=== PATIENT | female | born 1950 | race Caucasian/White ===

== ENCOUNTER 2024-08-04 12:28 | Outpatient (OUT) | payer MEDICARE, SELFPAY ==
--- NOTE | 2024-08-04 12:38 | ECG_ITS ---
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
--- NOTE | 2024-08-04 13:05 | PM.PRESUREVA ---
History of Present Illness History of Present Illness Chief complaint: LEFT EAR FOREIGN BODY, RIGHT ETD Narrative: Patient presents for presurgical testing accompanied by her . Please see HPI from Dr. Valdez dated July 27, 2024. Review of Systems ROS Narrative REVIEW OF SYSTEMS: Negative except as stated in HPI, ten or more systems reviewed. Constitutional: No fever, chills, weakness ENT: No sore throat or epistaxis Cardiovascular: No edema, chest pain, palpitations, or activity intolerance Respiratory: No shortness of breath, cough, or wheezing Musculoskeletal: No joint pain or swelling Gastrointestinal: No abdominal pain, constipation, diarrhea, or vomiting Genitourinary: No dysuria or hematuria Neurological: No numbness, tingling, weakness, or headache Psychiatric: No mood changes PFSH PFSH Medical History (Updated 08/04/24 @ 12:43 by Esthela Dunham NP) Paresthesia of left upper limb ?R20.2 - Paresthesia of skin (ICD-10) Hyperlipidemia ?E78.5 - Hyperlipidemia, unspecified (ICD-10) Depression ?F32.A - Depression, unspecified (ICD-10) Hearing loss ?H91.90 - Unspecified hearing loss, unspecified ear (ICD-10) Foreign body in left ear ?T16.2XXA - Foreign body in left ear, initial encounter (ICD-10) Eustachian tube dysfunction ?H69.90 - Unspecified Eustachian tube disorder, unspecified ear (ICD-10) Surgical History (Updated 08/04/24 @ 12:53 by Esthela Dunham NP) History of colonoscopy ?Z98.890 - Other specified postprocedural states (ICD-10) History of tubal ligation ?Z98.51 - Tubal ligation status (ICD-10) H/O ovarian cystectomy ?Z98.890 - Other specified postprocedural states (ICD-10) ?Z87.42 - Personal history of other diseases of the female genital tract (ICD-10) Family History (Updated 08/04/24 @ 12:53 by Esthela Dunham NP) Other Family history of Alzheimer's disease Family history of colon cancer Family history of ovarian cancer Social History (Updated 08/04/24 @ 12:49 by Esthela Dunham NP) Within the past year, how often did you have a drink containing alcohol: 4 or more times a week Within the past year, how many standard drinks containing alcohol did you have on a typical day: 1 or 2 Total score: 0 Score interpretation: A score less than 3 is consistent with normal alcohol consumption. Smoking status: Never smoker Non-prescribed substance use: denies use Highest level of school completed/degree received: high school graduate Meds Home Medications and Allergies Home Medications ?Medication ?Instructions ?Recorded ?Confirmed ?Type escitalopram oxalate 10 mg tablet 10 mg PO DAILY 08/04/24 08/04/24 History multivitamin (Daily Multi-Vitamin 1 tab PO DAILY 08/04/24 08/04/24 History tablet) Allergies Allergy/AdvReac Type Severity Reaction Status Date / Time No Known Drug Allergies Allergy Verified 08/04/24 12:46 Exam Narrative Exam Narrative: Constitutional: Awake, alert, comfortable, well-appearing, nontoxic, interactive, vital signs as charted Head: Normocephalic, atraumatic Neck: Supple, normal appearance, normal range of motion, no meningeal signs, no lymphadenopathy Respiratory: No respiratory distress, breath sounds clear Cardiovascular: Regular rate and rhythm, strong and regular heart tones Musculoskeletal: Normal gait, no swelling or edema Skin: No rashes or induration, no lesions, only visible skin inspected Neuro: No neurological deficits, normal sensation Psychiatric: Oriented ?3, normal affect Assessment and Plan Assessment and Plan (1) Eustachian tube dysfunction: (2) Foreign body in left ear: Plan Right myringotomy and insertion of ventilation tube, T-tube, removal of foreign body left ear scheduled with Dr. Valdez August 12, 2024.
[2024-08-04 13:19] LABS: Basophils Absolute Auto 0.1 10^3/uL (0.0-0.1); Eosinophils Absolute Auto 0.3 10^3/uL (0.0-0.7); Eosinophils Percent Auto 5.4 % (0.9-7.0); Hematocrit 36.7 % (36.0-48.0); Hemoglobin 12.6 g/dL (12.0-16.0); Immature Granulocytes Abs Auto 0.01 10^3/uL (0.00-0.03); Immature Granulocytes Pct Auto 0.2 % (0.0-0.5); Lymphocytes Absolute Auto 1.5 10^3/uL (1.2-3.8); Lymphocytes Percent Auto 25.8 % (20.5-60.0); Mean Corpuscular HGB Conc 34.3 g/dL (29.9-35.2); Mean Corpuscular Hemoglobin 32.9 pg (26.7-34.0); Mean Corpuscular Volume 95.8 fL (81.0-99.0); Mean Platelet Volume 10.5 fL (9.5-13.5); Monocytes Absolute Auto 0.6 10^3/uL (0.3-0.8); Monocytes Percent Auto 9.4 % (1.7-12.0); Neutrophils Absolute Auto 3.5 10^3/uL (1.4-6.5); Neutrophils Percent Auto 58.2 % (43.0-75.0); Platelet Count 212 10^3/uL (150-450); Red Blood Count 3.83 10^6/uL (4.20-5.40); Red Cell Distribution Width 12.6 % (11.0-15.0); White Blood Count 5.9 10^3/uL (4.0-11.0)
== END 2024-08-04 12:29 | disposition home or self-care (01) ==
LOC: PST 12:32
PROVIDERS: Visit Provider Otolaryngology
DX: Z01.810 Encounter for preprocedural cardiovascular examination (principal); Z01.812 Encounter for preprocedural laboratory examination; Z01.818 Encounter for other preprocedural examination; H69.91 Unspecified Eustachian tube disorder, right ear; T16.2XXA Foreign body in left ear, initial encounter
CPT/HCPCS: 85025; 93005; G0463

== ENCOUNTER 2024-08-12 07:54 | Day surgery (SDC) | payer MEDICARE, SELFPAY ==
[2024-08-04 13:02] VITALS: BP 145/79; PULSE 70; TEMP 36.2; O2SAT 98; BMI 18.9
[2024-08-12] VITALS (12 sets, daily range): BP systolic 109–155; BP diastolic 52–93; PULSE 60–79; TEMP 36.2–36.3; O2SAT 96–99; BMI 19.0
--- NOTE | 2024-08-12 | OP_ITS ---
OPERATION DATE: 08/12/2024 PREOPERATIVE DIAGNOSIS: Bilateral mixed hearing loss, left ear foreign body and left tympanic membrane perforation. POSTOPERATIVE DIAGNOSIS: Bilateral mixed hearing loss, left ear foreign body and left tympanic membrane perforation. PROCEDURE: Right myringotomy and tube and removal of left ear foreign body. ANESTHESIA: General LMA. COMPLICATIONS: None. FINDINGS: Thick right myringosclerosis. No middle ear effusion evident. Left inferior 60% tympanic membrane perforation and large posterior tympanic membrane and external auditory canal crust. INDICATIONS: This 73-year-old woman presented with severe bilateral mixed hearing loss and bilateral myringosclerosis, resulting in a perforation on the left. She had persistent large crust and apparent right middle ear effusion, based upon examination and a flat tympanogram. PROCEDURE: Patient identified in the holding area and taken back to the OR area where she was placed in the supine position. After induction of general anesthesia, the left ear was approached with the otomicroscope and a pick used to carefully tease crust away from the posterior tympanic membrane the posterior external auditory canal. It was then removed with an alligator forcep. Attention was then turned to the right ear. Again, the crust was teased away from the tympanic membrane. The external canal was then prepped with alcohol, which was then suctioned. An anterior radial myringotomy was performed, and the above findings noted. A modified Bonilla T-tube could not be successfully inserted into the myringotomy and opened in the middle ear. Therefore, an Tillman tympanostomy tube was inserted. Ciprodex drops were then infused and the patient was awakened and taken to the recovery room in good condition. OLGA
--- OUTSIDE RECORDS SUMMARY | 2024-08-12 07:58 | XMS_ITS | CCD ---
Author Organization [facility] Team Providers Care Accounting Practice Manager Name Role Phone VandSaad cania W Primary Care Provider [phone] VANDEHEY, DANDY W Primary Care Unavailable VANDEHEY, DANDY W Attending Unavailable VANDEHEY, DANDY W Admitting Unavailable VANDEHEY, DANDY W Attending Unavailable VANDEHEY, DANDY W Referring Unavailable VANDEHEY, DANDY W Primary Care Unavailable Unavailable Primary Care Provider Unavailluke e Maribel Murry Primary Care Provider RAYNA BISHOP Attending Unavailable TIFFANIE FRAUSTO Attending Unavailable MARIBEL MCGILL Attending Unavailable TIFFANIE FRAUSTO Attending Unavailable TIFFANIE FRAUSTO Attending Unavailable TIFFANIE FRAUSTO Attending Unavailable Medications Current Medications Medication Drug Class(es) Dates Sig (Normalized) Sig (Original) amoxicillin 875 mg / clavulanate 125 mg oral tablet (7 sources) Penicillin-class Antibacterial Start: 05-05-2024 End: 05-24-2024 take 1 tablet by mouth in the morning amoxicillin-clavul anate (Augmentin) 875-125 MG tablet Indications: Right acute otitis media Take 1 tablet (875 mg) by mouth in the morning and 1 tablet (875 mg) before bedtime. Do all this for 10 days. 20 tablet 05/14/2024 05/24/2024 Active b complex vitamins capsule (2 sources) take 1 capsule by mouth once daily b complex vitamins capsule Take 1 capsule by mouth daily 0 Active escitalopram 10 mg oral tablet (20 sources) Serotonin Reuptake Inhibitor Start: 08-15-2021 take 1 tablet by mouth once daily escitalopram (LEXAPRO) 10 MG tablet Take 1 tablet by mouth daily 90 tablet 3 08/21/2022 Active Start: 08-20-2018 escitalopram ( LEXAPRO) 10 MG tablet 1/2 tab daily for the first 6 days, then increase to 1 pills daily 90 tablet 3 08/20/2018 Active fluticasone propionate 0.05 mg/actuat metered dose nasal spray (17 sources) Corticosteroid Start: 05-14-2024 End: 05-14-2025 take 2 spray(s) nasal route once daily fluticasone (Flonase) 50 MCG/ACT nasal spray Indications: Right acute otitis media Administer 2 sprays into each nostril Daily Shake gently. Before first use, prime pump. After use, clean tip and replace cap. 48 g 3 05/14/2024 05/14/2025 Active ketoconazole 20 mg/ml topical cream (1 source) Azole Antifungal Start: 08-04-2018 ketoconazole (NIZORAL) 2 % cream apply to affected area twice a day for 14 DAYS 0 08/04/2018 Active Multiple Vitamins-Minerals (Multivitamin Adults 50+) tablet (17 sources) take 1 tablet by mouth once daily Multiple Vitamins-Minerals (Multivitamin Adults 50+) tablet Take 1 tablet by mouth Daily Active ofloxacin 3 mg/ml otic solution (8 sources) Quinolone Antimicrobial Start: 06-08-2024 End: 06-13-2024 ofloxacin (Floxin) 0.3 % otic solution Indications: Foreign body of left ear, initial encounter Administer 4 drops into the left ear in the morning and 4 drops before bedtime. Do all this for 5 days. 10 mL 06/08/2024 06/13/2024 Active Start: 05-05-2024 End: 05-14-2024 ofloxacin (Floxin) 0.3 % shabbir c solution Indications: Non- recurrent acute suppurative otitis media of right ear with spontaneous rupture of tympanic membrane Administer 10 drops into the right ear Daily for 7 days 5 mL 05/05/2024 05/14/2024 Discontinued (Therapy completed) triamcinolone acetonide 1 mg/ml topical cream (1 source) Corticosteroid Start: 04-10-2018 triamcinolone (KENALOG) 0.1 % cream Apply topically 2 times daily 80 g 1 04/10/2018 Active Completed/Discontinued Medications Medication Drug Class(es) Dates Sig (Normalized) Sig (Original) ciprofloxacin 3 mg/ml / dexamethasone 1 mg/ml otic suspension (2 sources) Corticosteroid, Quinolone Antimicrobial Start: 05-14-2024 End: 05-21-2024 ciprofloxacin-de xAMETHasone (CiproDEX) otic suspension Indications: Chronic otorrhea of left ear Administer 4 drops into the left ear in the morning and 4 drops before bedtime. Do all this for 7 days. 7.5 mL 05/14/2024 05/21/2024 predniSONE 20 mg oral tablet (2 sources) Start: 05-14-2024 End: 05-20-2024 take 1 tablet by mouth in the morning predniSONE (Deltasone) 20 MG tablet Indications: Right acute otitis media Take 1 tablet (20 mg) by mouth in the morning and 1 tablet (20 mg) before bedtime. Do all this for 6 days. 12 tablet 05/14/2024 05/20/2024 Problems Active Problems Problem Classification Problem Date Documented Date Episodic/Chronic Chronic obstructive pulmonary disease and bronchiectasis (2 sources) Bronchitis; Translations: [Bronchitis, not specified as acute or chronic] 05-05-2024 Episodic Disorders of lipid metabolism (20 sources) Mixed hyperlipidemia; Translations: [Mixed hyperlipidemia] Onset: 08-05-2016 08-05-2016 Chronic Mood disorders (20 sources) Moderate major depression, single episode; Translations: [Major depressive disorder, single episode, moderate] Onset: 08-15-2021 08-15-2021 Chronic Other ear and sense organ disorders (2 sources) Bilateral hearing loss; Translations: [Unspecified hearing loss, bilateral] 05-14-2024 Chronic Other ear and sense organ disorders (4 sources) Mixed conductive and sensorineural hearing loss, bilateral; Translations: [Mixed conductive and sensorineural hearing loss, bilateral] 07-23-2024 Chronic Other ear and sense organ disorders (2 sources) Otorrhea; Translations: [Otorrhea, left ear] 05-14-2024 Episodic Other injuries and conditions due to external causes (6 sources) Foreign body in left ear; Translations: [Foreign body in left ear, initial encounter] 06-08-2024 Episodic Other screening for suspected conditions (not mental disorders or infectious disease) (3 sources) Patient encounter status; Translations: [Encounter for screening mammogram for malignant neoplasm of breast] Onset: 11-03-2023 Episodic Otitis media and related conditions (20 sources) Acute suppurative otitis media with spontaneous rupture of ear drum; Translations: [Acute suppurative otitis media with spontaneous rupture of ear drum, right ear] 05-07-2024 Episodic Past or Other Problems Problem Classification Problem Date Documented Da te Episodic/Chronic Other ear and sense organ disorders (2 sources) Otalgia; Translations: [Otalgia, unspecified ear] Onset: 05-09-2013 Resolved: 05-21-2013 05-21-2013 Episodic Other ear and sense organ disorders (1 source) Pain of ear structure; Translations: [Otalgia, unspecified ear] Onset: 05-09-2013 Resolved: 05-21-2013 05-21-2013 Episodic Other nervous system disorders (20 sources) Paresthesia of skin; Translations: [Paresthesia of left upper limb] Onset: 05-21-2013 05-21-2013 Episodic Results Test Name Value Interpretation Reference Range Facility ALL CBC WITH AUTO DIFFon BASOPHILS ABSOLUTE AUTO 0.1 [facility] Basophils/100 WBC (Bld) 1 % 0.2 - 2.0 % [facility] Eosinophils/100 WBC (Bld) 5.4 % 0.9 - 7.0 % [facility] Erythrocyte distribution width (RBC) [Ratio] 12.6 % 11.0 - 15.0 % [facility] Hematocrit (Bld) [Volume fraction] 36.7 % 36.0 - 48.0 % [facility] ([facility] [Mass/Vol] 12.6 g/dL 12.0 - 16.0 g/dL [facility] IMMATURE GRANULOCYTES ABS AUTO 0.01 [facility] Immature granulocytes/100 WBC (Bld) 0.2 % 0.0 - 0.5 % [facility] Interpretation and review of laboratory results Abnormal [facility] LYMPHOCYTES ABSOLUTE AUTO 1.5 [facility] Lymphocytes/100 WBC (Bld) 25.8 % 20.5 - 60.0 % [facility] MCH (RBC) [Entitic mass] 32.9 pg 26.7 - 34.0 pg [facility] MCHC (RBC) [Mass/Vol] 34.3 g/dL 29.9 - 35.2 g/dL [facility] MCV (RBC) [Entitic vol] 95.8 fL 81.0 - 99.0 fL [facility] MONOCYTES ABSOLUTE AUTO 0.6 [facility] Monocytes/100 WBC (Bld) 9.4 % 1.7 - 12.0 % [facility] NEUTROPHILS ABSOLUTE AUTO 3.5 [facility] Neutrophils/100 WBC (Bld) 58.2 % 43.0 - 75.0 % [facility] Platelet mean volume (Bld) [Entitic vol] 10.5 fL 9.5 - 13.5 fL [facility] # [facility]T 212 [facility] RBC 3.83 Low [facility] WBC 5.9 [facility] ECG 12-LEADon 08-04-[address] [address] Electrocardiograph Report Signed Patient: CHIQUI WEINBERG MR#: [id number] : 1950 Acct:[id number] Age/Sex: 73 / F ADM Date: 08/04/24 Loc: PST Attending Dr: Tiffanie Frausto M.D. Ordering Physician: Tiffanie Frausto M.D. 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 Signed By: 08/04/242110 DD/ 1302 TD/TT: Financial Systems Administrator: [facility] Radiology, Radiologist, - 08/04/2024 [facility] [address] [place] [address] Electrocardiograph Report Signed Patient: CHIQUI WEINBERG MR#: [id number] : 1950 Acct:[id number] Age/Sex: 73 / F ADM Date: 08/04/24 Loc: PST Attending Dr: Tiffanie Frausto M.D. Ordering Physician: Tiffanie Frausto M.D. 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 Signed By: 08/04/242110 DD/ 1302 TD/TT: Financial Systems Administrator: [facility] [employer] Radiology Study observation (narrative) [facility] ECG 12-LEADOrdered By: Radio logist Radiology on 08-04-2024 [employer] Work Phone: No Panel Informationon 07-23 [employer] Audio indicated a moderate to profound mixed hearing loss, bilaterally. [employer] [facility] FUENTES DIGITAL SCREEN BILA TERALosusanne 11-03-2023 [facility] FUENTES DIGITAL SCREEN BILATERAL EXAMINATION: SCREENING DIGITAL BILATERAL MAMMOGRAM WITH TOMOSYNTHESIS, 11/03/2023 TECHNIQUE: Screening mammography was performed with tomosynthesis including MLO and CC views of the bilateral breasts. Computer aided detection was used for the interpretation of this exam. COMPARISON: October 24, 2022 and October 23, 2021 HISTORY: Screening. FINDINGS: The breasts are heterogeneously dense which can obscure small masses. There is no dominant mass architectural distortion or concerning grouping of microcalcification in either breast. IMPRESSION: No mammographic evidence of malignancy BIRADS: BIRADS - CATEGORY 1 Negative. Normal interval follow-up is recommended in 12 months. OVERALL ASSESSMENT - NEGATIVE A letter of notification will be sent to the patient regarding the results. [employer] recommends annual mammograms for women 40 years and older. Interpreted by: Alan Luna DO Signed by: Alan Luna DO 11/03/23 Final result Normal [facility] Coding Summaryon 08-18-2023 Coding Summary HTMLBase 64 JazlehezRNa1dCb+PGh lYWQ+CJ6FMICdO57yiZ BhdV3hS2GATZpDZiakM VZIUEnCMnBqpmFdGE3j aXNjZXJu IC8+NX2sFNAvSwcghXJ nr6R6mAN4M31dwj8vOY svvGD4CFUaOkSibknza 8szeOp0DVazQzjdWcTg QOBtxA97IOP4gY72Am2 5dESzbLYtl5jsgXe9Xm DbHSTzJNX6nRwnNLtuy 5EnGMPaE38tzZZco0I9 IGNvbGxhcHNlOyBlbXB 1vB5jEUaabyevj3bzbh vgHwh8hf71bZJou0X7a AD6B3PnhfF6ZYHvdNUq LfgxgBYJhU5mibfqp1h kzzdrAjTwEHEjUEb2JI q0WQJirJxpBrVfBZ27E IG4QJIcykDzE5XjLNFf mBxcTxR9a2H2Uw2DV7X TOijxF3MIOKRQCHjzfL Q+IN00ow55S5JvKfotR yk9VOOzZVF6yED3nW4q QSAkNJnsu4S9vUW5H6F nnoYrmg9rl0fmPAQcZV nyH21zyILrt8J9ERAzw UW9WGStfAflNtInrG67 Oyc+SFSlvCvff0UsYbc jp2suo7nxmQp3LtctAT FsvwKnaYetVYN7y7LbQ t6jQNHtmDB6nPS1lZ5m OmLrHxH8RCwxD107VkN ooWHxAhirI20gP4KxtP A+CZMgUgv5HVCgeGuiI Q0yU3IbPRXcyxwpnYYa sPebZI2vZCWzcipaZFI ikU1zFROzP7c3QtUuNx Z0UMhjK7UiCLRsinvlG z50nJ4vJbMiDiQ5IQxn L3QzemJ2HOSbhJUzJUy sVCM4Q44ja8W8CULgXA EwUIA4sMB0gI2pgVaxc jogbGVmdDsgdmVydGlj VRatORadE725WVNtvSb nPkNvZGluZyBEYXRlOi AgMDIvMTkvMjAyNDwvd GQ+BXTfHND2wFxgPXJw qCTaMMxwRv5wrPmnyPr jWU9pSKXzucnrJLPqeP 2kOKDjcEVldSrfNK3kB ZCavllgf170ItDrTKN4 BBKyeTLuK5BigP1hObY wIVYiSXUsA8FcjZTrHX eqA753QPfmTmH7IGLfc jOlL7JnPFBysThsHxE4 i9Q4Ie7Rp8CpgodqB8E exIXwFgMeGhnhROx0D2 RkPjwvdHI+AI87ENRzY N35JTx7CZX3wHkiPYos SQStU8IxbH7gMsSuZBO kZGRkOyc+PHRhYmxlIH dpZHRoPScxMDAlJyBzd OrbQY1sBb7kZDCfKXZx lWkgrKMqLqDmw4arDYV pNLsfYM0kePdoS6DhnL Z3MOYaw3x5Wy59Z19nE 3JvdXA+SACwvVR9qHO1 gH2lPoVqEzG1KLsvJ20 8JjUxyWYmCxnxx6wqz2 sidMt8HiR2XLNufkFto QygDGK4p6MaGc82N62s IHdpZHRoPSIxNSUiIHZ eyFsmlk9luJ5bEc7+PG EfcFT1sFL6iX7dQeDgL wI4JEadP667IpQfbKEs Jliwg4qlh8kjbHe3GnE mJJHzkdIbjVqtSNZ3n9 NxSe88P2EixPhvl4LvH jt4ra19fYTda1Q2wTG4 S6JsWSRffvenhFRtvIz eNU5eEAZtmgiaJMZmbL 0kIABsP4p9DjPlPeO6K RhuH1IlhcM0UFGneMEf GSBktWGRaZ0dchlwi5d vfbzpPwLpZMBiYEe8PP s7KBFzwNqbOeKuHBX8Y lK5UYL8rCZqzM2mhVmt pceicU5rNep+BQF4aUF kcBAHHE9yHrzvgTX+PH IsGIR3gNngTAyyLRKmy P1mJIPiW3s4SmFsVvE0 TAuzM4FjasH4QDKbuIS sREOxaUQDgK6bobvjk6 rjjxnbLkWoXRIwJDf6L Rg7NYAguToaZjOwRIQ9 NtT0PYU9wUIjvH3jtYt wuurmoV0aNbc+QmlydG loBZZ1JVb0H1TbExr4N XIlhZdrLC3hvQXmLGrq Ag4xyEkthErxOT0rGHF hmnfyn499FaGxz5sfCA BojUDrEIgnFKX7H49en 3H2HNVwJUHgYAU9uGV7 eJ4omCgjznwzkLGuwFk gdmVydGljYWwtYWxpZ2 76IYMnrDcqNiFdRCq3D 9YrSxc0WATxbHjsTD8e hFGsPEwbTs2jbUmtgFo yBV1xLFQkkhfzr149Qm Fwh3toVGGqnYAaNAbsO TY2D81lm5F0VRRpBEZy XZA8zHS4vP9qdNkgiqk gbGVmdDsgdmVydGljYW sfEFgtB339XKFtxWryC aGwkZx0K6PdBfc9SDIp wThnNT6dfGFyBVykDp9 omIafhQibOK1kCCOtip ycd919KaUox2ebHDVlu XFnWXacFDM3T23op0J0 YVHyFSBdNJZ5qHL0yV9 hbGlnbjogbGVmdDsgdm YduRutIMyoBSpmC659V HRvcDsnPlBhdGllbnQg VHjcBGd9W4RkEkknqBY +BK25KUTnWF39xVWbtT Jei2uwpEg5UvOzYTHpT CB3dKsnKXzem4YhDEXl U57yrWLuz3Z3UEWyoJu hyNNjYlSwqOO8lR0qFN dzqeijr1welgiqDuhzr 2nwxm64kA89A14rYDdj ZHRoPSIzMCUiIHZhbGl mtz1stW8iQv2+PGNvbC M8qXJ6vE9wPTMkKhD9R HacC528ZwRwcQXfHmpz x6wpj3jgjCq0DqR1HMC djkKjjQfhQSA3l9DqCh 26U96sOLvxVBFiDBCfD RTmECXfmUrtin6wkS1t Ii8+JIApwKU5uTJ9bU2 uDyMpNmH4CKvwY620Pv WigFMgUtgyE55tO4Qud XA+JJLgKgc6IYRiaZge SL5flMFrKTicQp8qLVC 9YaHtBwEcVSueK7IyHD WmhimatgqfmSE5QZZwX XSctN67Lo9snSseHHWw qWVQpP2yjbpzp7cxfhm vScBzTWUrOSm0GUd6KP LfyIucEjCgTRC8SkB5O SQ4nKWphQ5qtLijbwfv oT6qZ6JbKXRpdwhgJo0 9nY2pHpNqUaM4OIyyWj c+TUNNSUxMTEVOLCBNQ ZMABYQ4S4PwMny4IEXs sVzxON3zdIPmCVdcOi6 kmXwjtRaqRK7dVILgba ikSQDweQ2dEVEbrNNyy EnoVO7fUSUctjdjt211 NlPgICT0JSTmiSNnL3B rxI1dYnUiDBRqAWDlQ5 BvrQWgMWzsM161NJflH gP8ONKokmZtC2YqURBt wShoRdE1i8V5Lm8fDQ7 zCe0pGRSxHT15PC14hP Iqk2H9mPT8O1YuQEEsz anrnsqteSC9YAJsGLNl uM16uEJcVHqeKr6jh3K 7z586AAQhOKUeaN16Ge 2vwIfpUJXqaWWEwS5jr qjqm4fvbtbpViXkXBYr JOa5GHq4PAOryGxlXfD rVGP7RnE5AGS9uKJafL 0paHsnxodznA5jGyf+N aTlXDWtpwV9G2UwQoa7 HLNraKacSL7fgURjHYg cDu2ceUpmcQlgIY5gCR BloqxwMYBowM8bZUHbt DWmxJmtMT3iLLFjhccd l148KmGdJFE6HLGhrAI vR3WvbB6xPaYtKADgAE OcY8EsuDTrAAspG575E HhnReO8APJzrsIaU3Jh GKJmvEmaKqR3t9X6Wz1 MTW2RMAJ6Q9DmUlv6UD DrsOhhNB7zbSOzJIdnV g7diFujdDsyMY9yNRHl xapfAADslE8gTEXwmBR ewEuhKF2rVJNbjauar0 84RiAmPGV7CAYzfJSmE 8TcgK0nZxMnVNXkULHq F1GxaXQkJAtlK685NSx kUcK1ZSPxahBkO1XhPC XpyYdrUkH0w3A5Mz0LT DwvdGQ+JS86tw45R5Qf NvrpTva2BTEzNBZ8bOO 7tS6bBOHuUYqyu3F4wR U1Z5JhmjUtjx4sm7bhX YBqPYyeJ34gyLPow2G2 CFDpvQF7TURqwDsnDvJ tmD75Tog+PGNvbGdyb3 RrGyqvr9poi1kggFf7Z jMwJSIgdmFsaWduPSJ0 q5NiVz73S51zYGvuRHK oPSIzMCUiIHZhbGlnbj 8ahP2zQn6+KGQcxIW2c EN5wN6gLuOgXaP1VDjj N460WrQefQNbFwprt2t hf8yrmSo8WfRjPCAiwq CwdLhdPWQ4a8EiYk98C 8JcgAeaw1WbTnf7zw21 hDBap5T9dDR4I9CsTFR lcrbesGZtpDyeHV9tAW HiuqviRMZgoJ6oKVJaK 2r6PxSpUwV6SFdpG4Oy mxT5CTArwPJvDXLpvGB WvO8xtvnaq4dppernCs NoENMyQPx7CLk5CPBji LsqSiCmMWT4XsD8FUG7 aAStjV3zkQyxdzzqyF5 wOyc+JLi7x0uykANkZE 0smJX8CR05SD40jKDks 7Q7cAH6G6JfGGVtatvw opbmaVO9SRGlASZsuO3 6Vm6umLkiSv8tBOXzQB O5MEPzmZDmH1EzvB1hK cMmHBEtOGAgB7WhxXBh UAiqX914IAmgLlY0CFI fzeOsU6ZvHYIqrTfuFh N2a9L7Ox2DHA77PG50B J54nRMec9E4nTS9B4Mj ZVEgnklhujoxzDB3IBG xXZFwdY94Yv5zuTteLz 8uARAsWBA9PUVbvNJcY 0IpgQ9fIhSjGUHnXGXx I7PfyCXoFOosR311AOf sZhL1DUCaihScE9SxKD UnhEfyPoW6g1F5Gl2MU v41HS11PS45pFKqx5G5 tHC5X7PtYIYuqmzacnp rsOS4PWLjCCEwpK43Du 4grLemFg4wKOAwSUQ0K CRgoDIjZ3TqpQ3aHnGu NVBvLQPlV5PhjXXsHZl uA949LDwoLjY7TCIfip MhH5IqWQPhmWhrLbM6n 5E2Ox8ZZYowkod9G8Qx PjwvdHI+IP57TIRyZX9 6gUFovMDtw8ermBt8Fh FtTCJvVKD2eDzuWQfqc 9QlBQRlV37fjRPjs6Y1 IGN (more content not included)... Normal [facility] .Auto Diff 08-14-2023 Auto Mower % 9 % Normal 07-11 [facility] Comment on above: Performed By: #### 1 [id number], [id number], [id number] #### [facility] (DEFAULT) [address] [place] [address] Baso Abs# 0.0 x10 Normal 0.0-0.2 [facility] Comment on above: Performed By: #### 1 [id number], [id number], [id number], [id number] #### [facility] (DEFAULT) [address] [place] [address] Basophils/100 WBC (Bld) 0.7 % Normal 0.2-2.0 [facility] Comment on above: Performed By: #### 1 [id number], [id number], [id number], [id number] #### [facility] (DEFAULT) [address] [place] [address] Eos Abs# 0.3 x10 Normal 0.0-0.4 [facility] Comment on above: Performed By: #### 1 [id number], [id number], [id number] #### [facility] (DEFAULT) [address] [place] [address] Eosinophils/100 WBC (Bld) 6.2 % High 0.9-4.0 [facility] Comment on above: Performed By: #### 1 [id number], [id number], [id number], [id number] #### [facility] (DEFAULT) [address] [place] [address] Lymph Abs# 1.4 x10 Normal 1.3-2.9 [facility] Comment on above: Performed By: #### 1 [id number], [id number], [id number] #### [facility] (DEFAULT) [address] [place] [address] Lymphocytes/100 WBC (Bld) 30 % Normal 14-48 [facility] Comment on above: Performed By: #### 1 [id number], [id number], [id number], [id number] #### [facility] (DEFAULT) [address] [place] [address] Mower Abs# 0.4 x10 Normal 0.0-0.8 [facility] Comment on above: Performed By: #### 1 [id number], [id number], [id number], [id number] #### [facility] (DEFAULT) [address] [place] [address] Neut Abs# 2.5 x10 Normal 1.5-9.2 [facility] Comment on above: Performed By: #### 1 [id number], [id number], [id number], [id number] #### [facility] (DEFAULT) [address] [place] [address] Neutrophils/100 WBC (Bld) 54 % Normal 44-88 [facility] Comment on above: Performed By: #### 1 [id number], [id number], [id number], [id number] #### [facility] (DEFAULT) [address] [place] [address] CBC w/ Auto Diffon 4 Erythrocyte distribution width (RBC) [Ratio] 12.7 % Normal 11.5-15.0 [facility] Comment on above: Performed By: #### 1 [id number], [id number], [id number], [id number] #### [facility] (DEFAULT) [address] [place] [address] Hematocrit (Bld) [Volume fraction] 39.4 % Normal 33.7-40.4 [facility] Comment on above: Performed By: #### 1 [id number], [id number], [id number], [id number] #### [facility] (DEFAULT) [address] [place] [address] Hemoglobin (Bld) [Mass/Vol] 13.6 g/dL Normal 11.3-15.9 [facility] Comment on above: Performed By: #### 1 [id number], [id number], [id number], [id number] #### [facility] (DEFAULT) [address] [place] [address] Man Diff? Auto Invalid Interpretation Code [facility] Comment on above: Performed By: #### 1 [id number], [id number], [id number], [id number] #### [facility] (DEFAULT) [address] [place] [address] MCH (RBC) [Entitic mass] 33 pg Normal 24-34 [facility] Comment on above: Performed By: #### 1 [id number], [id number], [id number], [id number] #### [facility] (DEFAULT) [address] [place] [address] MCHC (RBC) [Mass/Vol] 34 g/dL Normal 26-37 [facility] Comment on above: Performed By: #### 1 [id number], [id number], [id number], [id number] #### [facility] (DEFAULT) [address] [place] [address] 28590 MCV (RBC) [Entitic vol] 97 fL Normal 81-100 [facility] Comment on above: Performed By: #### 1 [id number], [id number], [id number], [id number] #### [facility] (DEFAULT) [address] [place] [address] Platelet 226 x10 Normal 138-427 [facility] Comment on above: Performed By: #### 1 [id number], [id number], [id number], [id number] #### [facility] (DEFAULT) [address] [place] [address]134 Platelet mean volume (Bld) [Entitic vol] 8.9 fL Normal 6.3-10.2 [facility] Comment on above: Performed By: #### 1 [id number], [id number], [id number], [id number] #### [facility] (DEFAULT) [address] [place] [address] 67865 RBC 4.06 x10 Normal 3.70-5.30 [facility] Comment on above: Performed By: #### 1 [id number], [id number], [id number], [id number] #### [facility] (DEFAULT) [address] [place] [address] WBC 4.7 x10 Normal 3.5-10.5 [facility] Comment on above: Performed By: #### 1 [id number], [id number], [id number], [id number] #### [facility] (DEFAULT) [address] [place] [address] CMP Standardon 08-14-2023 eGFR Non AA >60 Invalid Interpretation Code [facility] Comment on above: Performed By: #### 1 [id number], [id number], [id number], [id number] #### [facility] (DEFAULT) [address] [place] [address] eGFR AA >60 Invalid Interpretation Code [facility] Comment on above: Performed By: #### 1 [id number], [id number], [id number], [id number] #### [facility] (DEFAULT) [address] [place] [address] 92101 Albumin [Mass/Vol] 4.2 g/dL Normal 3.5-5.0 [facility] Comment on above: Performed By: #### 1 [id number], [id number], [id number], [id number] #### [facility] (DEFAULT) [address] [place] [address] Albumin/Globulin [Mass ratio] 1.3 {ratio} Low 1.4-2.6 [facility] Comment on above: Performed By: #### 1 [id number], [id number], [id number], [id number] #### [facility] (DEFAULT) [address] [place] [address] Alk Phos 89 IU/L Normal 32-91 [facility] Comment on above: Performed By: #### 1 [id number], [id number], [id number], [id number] #### [facility] (DEFAULT) [address] [place] [address] ALT [Catalytic activity/Vol] 16.0 U/L Normal 14.0-54.0 [facility] Comment on above: Performed By: #### 1 [id number], [id number], [id number], [id number] #### [facility] (DEFAULT) [address] [place] [address] Anion gap [Moles/Vol] 13.1 mmol/L Normal 5.0-19.0 [facility] Comment on above: Performed By: #### 1 [id number], [id number], [id number], [id number] #### [facility] (DEFAULT) [address] [place] [address] AST [Catalytic activity/Vol] 25 U/L Normal 15-41 [facility] Comment on above: Performed By: #### 1 [id number], [id number], [id number], [id number] #### [facility] (DEFAULT) [address] [place] [address] Bili Total 0.9 mg/dL Normal 0.3-1.2 [facility] Comment on above: Performed By: #### 1 [id number], [id number], [id number], [id number] #### [facility] (DEFAULT) [address] [place] [address]47 Calcium [Mass/Vol] 9.5 mg/dL Normal 8.9-10.3 [facility] Comment on above: Performed By: #### 1 [id number], [id number], [id number], [id number] #### [facility] (DEFAULT) [address] [place] [address] Chloride [Moles/Vol] 101 mmol/L Normal 101-111 [facility] Comment on above: Performed By: #### 1 [id number], [id number], [id number], [id number] #### [facility] (DEFAULT) [address] [place] [address]26 CO2 [Moles/Vol] 28 mmol/L Normal 21-32 [facility] Comment on above: Performed By: #### 1 [id number], [id number], [id number], [id number] #### [facility] (DEFAULT) [address] [place] [address] 13954 Creatinine [Mass/Vol] 0.67 mg/dL Normal 0.60-1.30 [facility] Comment on above: Performed By: #### 1 [id number], [id number], [id number], [id number] #### [facility] (DEFAULT) [address] [place] [address] 44390 Globulin (S) [Mass/Vol] 3.2 g/dL Normal 1.5-4.3 [facility] Comment on above: Performed By: #### 1 [id number], [id number], [id number], [id number] #### [facility] (DEFAULT) [address] [place] [address] 96875 Glucose [Mass/Vol] 90.0 mg/dL Normal 74.0-118.0 [facility] Comment on above: Performed By: #### 1 [id number], [id number], [id number], [id number] #### [facility] (DEFAULT) [address] [place] [address]1411 Osmolality 275 mOsm/L Invalid Interpretation Code [facility] Comment on above: Performed By: #### 1 [id number], [id number], [id number], [id number] #### [facility] (DEFAULT) [address] [place] [address] 71509 Potassium [Moles/Vol] 4.1 mmol/L Normal 3.6-5.1 [facility] Comment on above: Performed By: #### 1 [id number], [id number], [id number], [id number] #### [facility] (DEFAULT) [address] [place] [address] 57341 Protein [Mass/Vol] 7.4 g/dL Normal 6.5-8.1 [facility] Comment on above: Performed By: #### 1 [id number], [id number], [id number], [id number] #### [facility] (DEFAULT) [address] [place] [address] 63919 Sodium [Moles/Vol] 138.0 mmol/L Normal 136.0-144.0 [facility] Comment on above: Performed By: #### 1 [id number], [id number], [id number], [id number] #### [facility] (DEFAULT) [address] [place] [address] 36512 Urea nitrogen [Mass/Vol] 11 mg/dL Normal 8-26 [facility] Comment on above: Performed By: #### 1 [id number], [id number], [id number], [id number] #### [facility] (DEFAULT) [address] [place] [address] 59320 Urea nitrogen/Creatinine [Mass ratio] 16.4 mg/mg High 4.6-16.2 [facility] Comment on above: Performed By: #### 1 [id number], [id number], [id number], [id number] #### [facility] (DEFAULT) [address] [place] [address] 64127 Lipid Panel Standardon 08-14 Cholesterol [Mass/Vol] 235.0 mg/dL High 66.0-200.0 [facility] Comment on above: Performed By: #### 1 [id number], [id number], [id number], [id number] #### [facility] (DEFAULT) [address] [place] [address] 31832 Cholesterol in HDL [Mass/Vol] 97 mg/dL High 40-71 [facility] Comment on above: Performed By: #### 1 [id number], [id number], [id number], [id number] #### [facility] (DEFAULT) [address] [place] [address] 91963 Cholesterol in LDL [Mass/Vol] 127 mg/dL High 1-100 [facility] Comment on above: Performed By: #### 1 [id number], [id number], [id number], [id number] #### [facility] (DEFAULT) [address] [place] [address] Cholesterol.total/Ch olesterol in HDL [Mass ratio] 2.4 {ratio} Normal 0.0-4.5 [facility] Comment on above: Performed By: #### 1 [id number], [id number], [id number], [id number] #### [facility] (DEFAULT) [address] [place] [address] Triglyceride [Mass/Vol] 55.0 mg/dL Normal 0.0-150.0 [facility] Comment on above: Performed By: #### 1 [id number], [id number], [id number], [id number] #### [facility] (DEFAULT) [address] [place] [address] VLDL. 11 mg/dL Normal 5-40 [facility] Comment on above: Performed By: #### 1 [id number], [id number], [id number], [id number] #### [facility] (DEFAULT) [address] [place] [address] Provider Orderson 08-14-2023 Provider Orders [id number] Normal [facility] FUENTES DIGITAL SCREEN BILA TERALon 10-24-2022 No mammographic evidence of malignancy BIRADS: BIRADS - CATEGORY 1 Negative. Normal interval follow-up is recommended in 12 months. OVERALL ASSESSMENT - NEGATIVE A letter of notification will be sent to the patient regarding the results. [employer] recommends annual mammograms for women 40 years and older[address] [facility] EXAMINATION: SCREENING DIGITAL BILATERAL MAMMOGRAM WITH TOMOSYNTHESIS, 10/24/2022 TECHNIQUE: Screening mammography was performed with tomosynthesis including MLO and CC views of the bilateral breasts. Computer aided detection was used for the interpretation of this exam. COMPARISON: October 23, 2021 and October 19, 2020 HISTORY: Screening. FINDINGS: The breasts are heterogeneously dense which can obscure small masses. There is no dominant mass architectural distortion or concerning grouping of microcalcification in either breast. [facility] Radiology Study observation (narrative) [facility] [employer] Work Phone: [facility] FUENTES DIGITAL SCREEN BILA TERALOrdered By: Alan Luna on 10-24-2022 [email or web address] Phone: [facility] FUENTES DIGITAL SCREEN BILA TERALon 10-23-2021 No evidence of malignancy. Advise annual screening mammography. BREAST DENSITY SUMMARY C: The breasts are heterogeneously dense which may obscure small masses. BI-RADS 1 BIRADS: BIRADS - CATEGORY 1 Negative, no evidence of malignancy. Normal interval follow-up is recommended in 12 months. OVERALL ASSESSMENT - NEGATIVE A letter of notification will be sent to the patient regarding the results. [employer] recommends annual mammograms for women 40 years and older[address] [facility] EXAMINATION: SCREENING DIGITAL BILATERAL MAMMOGRAM WITH TOMOSYNTHESIS, 10/23/2021 TECHNIQUE: Screening mammography was performed with tomosynthesis including MLO and CC views of the bilateral breasts. Computer aided detection was used for the interpretation of this exam. COMPARISON: 19 October 2020; 24 September 2018 HISTORY: Screening. Negative family history of breast cancer. 6 year history of oral contraceptive usage. Negative history of hormonal replacement therapy. No prior breast interventions. FINDINGS: The breast parenchyma is heterogeneously dense which can obscure small masses. No skin thickening, nipple contour changes, malignant type microcalcifications , areas of architectural distortion, or significant interval changes are noted. [facility] Radiology Study observation (narrative) [facility] Phone: [facility] FUENTES DIGITAL SCREEN BILA TERALOrdered By: Keke Salazar on 10-23-2021 [facility] Phone: CBC Auto Differentialon 07-31 Basophils (Bld) [#/Vol] 0.04 10*3/uL [facility] [place] Basophils/100 WBC (Bld) 1 % 0 - 2 % [facility] [place] [place] Differential Type NOT REPORTED [facility] [place] Eosinophils (Bld) [#/Vol] 0.36 10*3/uL [facility] [place] Eosinophils/100 WBC (Bld) 6 % High 1 - 4 % [facility] [place] Erythrocyte distribution width (RBC) [Ratio] 11.9 % 11.8 - 14.4 % [place] Hematocrit (Bld) [Volume fraction] 40.3 % 36.3 - 47.1 % [place] Hemoglobin (Bld) [Mass/Vol] 13.7 g/dL 11.9 - 15.1 g/dL [place] Immature granulocytes (Bld) [#/Vol] 0 % 0 [place] Immature granulocytes (Bld) [#/Vol] 10*3/uL [place] Interpretation and review of laboratory results Abnormal [place] Lymphocytes (Bld) [#/Vol] 1.88 10*3/uL [place] Lymphocytes/100 WBC (Bld) 31 % 24 - 43 % [place] MCH (RBC) [Entitic mass] 33.0 pg 25.2 - 33.5 pg [place] MCHC (RBC) [Mass/Vol] 34.0 g/dL High 25.2 - 33.5 g/dL [place] MCV (RBC) [Entitic vol] 97.1 fL 82.6 - 102.9 fL [place] Monocytes (Bld) [#/Vol] 0.49 10*3/uL [place] Monocytes/100 WBC (Bld) 8 % 3 - 12 % [place] Platelet mean volume (Bld) [Entitic vol] 10.0 fL 8.1 - 13.5 fL [place] Platelets (Bld) [#/Vol] 235 10*3/uL [place] Platelets (Bld) [#/Vol] NOT REPORTED [place] RBC (Bld) [#/Vol] 4.15 10*6/uL 3.95 - 5.1 1 m/uL [place] RBC morphology finding Nom (Bld) NOT REPORTED [place] Segmented neutrophils/100 WBC (Bld) 54 % 36 - 65 % [place] Segs Absolute 3.25 [place] WBC (Bld) [#/Vol] 6.0 10*3/uL [place] WBC (Bld) [#/Vol] 0.0 10*3/uL 0.0 per 10 0 WBC [place] WBC Morphology NOT REPORTED [place] Comprehensive Metabolic Pane cody 08-18-2019 Albumin [Mass/Vol] 4.8 g/dL 3.5 - 5.2 g/dL [place] Albumin/Globulin [Mass ratio] 1.5 {ratio} [place] ALP [Catalytic activity/Vol] 109 U/L High 35 - 104 U/L [place] ALT [Catalytic activity/Vol] 23 U/L 5 - 33 U/L [place] Anion gap [Moles/Vol] 14 mmol/L 9 - 17 mmol/L [place] AST [Catalytic activity/Vol] 29 U/L <32 [place] Bilirubin Ql (U) 0.49 mg/dL 0.3 - 1.2 mg/dL [place] Bun/Cre Ratio 23 [place] Calcium [Mass/Vol] 10.0 mg/dL 8.6 - 10. 4 mg/dL [place] Chloride [Moles/Vol] 98 mmol/L 98 - 10 7 mmol/L [place] CO2 [Moles/Vol] 27 mmol/L 20 - 31 mmol/L [place] Creatinine [Mass/Vol] 0.44 mg/dL Low 0.5 - 0.9 mg/dL [place] GFR >60 >60 mL/min [place] GFR Non- >60 >60 mL/min [place] GFR/1.73 sq M predicted among non-blacks MDRD (S/P/Bld) [Vol rate/Area] NOT REPORTED [place] GFR/1.73 sq M predicted among non-blacks MDRD (S/P/Bld) [Vol rate/Area] [place] Comment on above: Average GFR for 60-6 9 years old: 85 mL/min/1.73sq m Chronic Kidney Disease: <60 mL/min/1.73sq m Kidney failure: <15 mL/min/1.73sq m eGFR calculated using average adult body mass. Additional eGFR calculator available at: http://www.[employer]/multiple_crcl_2012.htm Glucose [Mass/Vol] 93 mg/dL 70 - 99 mg/dL [place] Potassium [Moles/Vol] 4.4 mmol/L 3.7 - 5.3 mmol/L [place] Protein [Mass/Vol] 7.9 g/dL 6.4 - 8.3 g/dL [place] Sodium [Moles/Vol] 139 mmol/L 135 - 144 mmol/L [place] Urea nitrogen [Mass/Vol] 10 mg/dL 8 - 23 mg/dL [place] Lipid Panelon 08-18-2019 Cholesterol [Mass/Vol] 240 mg/dL High <200 [place] Comment on above: Cholesterol Guidelines: <200 Desirable 200-240 Borderline >240 Undesirable Cholesterol in HDL [Mass/Vol] 103 mg/dL >40 [place] Comment on above: HDL Guidelines: <40 Undesirable 40-59 Borderline >59 Desirable Cholesterol in LDL [Mass/Vol] 117 mg/dL 0 - 130 mg/dL [place] Comment on above: LDL Guidelines: <100 Desirable 100-129 Near to/above Desirable 130-159 Borderline >159 Undesirable Direct (measured) LDL and calculated LDL are not interchangeable tests. Cholesterol in VLDL [Mass/Vol] NOT REPORTED 1 - 30 mg/dL [place] Cholesterol.total/Ch olesterol in HDL [Mass ratio] 2.3 {ratio} <5 [place] Triglyceride [Mass/Vol] 98 mg/dL <150 [place] Comment on above: Triglyceride Guidelines: <150 Desirable 150-199 Borderline 200-499 High >499 Very high Based on AHA Guidelines for fasting triglyceride, March 2012. Otheron 08-18-2019 Interpretation and review of laboratory results Abnormal [place] TSH without Reflexon 020 TSH Qn 2.34 m[IU]/L [place] Vital Signs Date Time Vital Sign Value Performing Clinician Rand hernadez 07-27-2024 10:33-0500 Body height 157.5 cm Tiffanie Frausto MD Work Phone: [facility] 07-27-2024 10:33-0500 Body mass index (BMI) [Ratio] 19.39 kg/m2 Tiffanie Frausto MD Work Phone: [facility] 07-27-2024 10:33-0500 Body weight 48.08 kg Tiffanie Frausto MD Work Phone: [facility] 07-27-2024 10:33-0500 Diastolic blood pressure 68 mm[Hg] Tiffanie Frausto MD Work Phone: [facility] 07-27-2024 10:33-0500 Heart rate 79 /min Tiffanie Frausto MD Work Phone: [facility] 07-27-2024 10:33-0500 Systolic blood pressure 99 mm[Hg] Tiffanie Frausto MD Work Phone: [facility] 06-16-2024 10:34-0500 Body height 157.5 cm Tiffanie Frausto MD Work Phone: [facility] 06-16-2024 10:34-0500 Body mass index (BMI) [Ratio] 19.39 kg/m2 Tiffanie Frausto MD Work Phone: [facility] 06-16-2024 10:34-0500 Body weight 48.08 kg Tiffanie Frausto MD Work Phone: [facility] 06-16-2024 10:34-0500 Diastolic blood pressure 66 mm[Hg] Tiffanie Frausto MD Work Phone: [facility] 06-16-2024 10:34-0500 Systolic blood pressure 125 mm[Hg] Tiffanie Frausto MD Work Phone: [facility] 06-08-2024 09:40-0500 Body height 157.5 cm Tiffanie Frausto MD Work Phone: [facility] 06-08-2024 09:40-0500 Body mass index (BMI) [Ratio] 19.39 kg/m2 Tiffanie Frausto MD Work Phone: [facility] 06-08-2024 09:40-0500 Body weight 48.08 kg Tiffanie Frausto MD Work Phone: [facility] 06-08-2024 09:40-0500 Diastolic blood pressure 62 mm[Hg] Tiffanie Frausto MD Work Phone: [facility] 06-08-2024 09:40-0500 Systolic blood pressure 110 mm[Hg] Tiffanie Frausto MD Work Phone: [facility] 05-14-2024 13:58-0500 Body height 157.5 cm Tiffanie Frausto MD Work Phone: [facility] 05-14-2024 13:58-0500 Body mass index (BMI) [Ratio] 21.95 kg/m2 Tiffanie Frausto MD Work Phone: [facility] 05-14-2024 13:58-0500 Body weight 54.43 kg Tiffanie Frausto MD Work Phone: [facility] 05-14-2024 13:58-0500 Diastolic blood pressure 77 mm[Hg] Tiffanie Frausto MD Work Phone: [facility] 05-14-2024 13:58-0500 Systolic blood pressure 111 mm[Hg] Tiffanie Frausto MD Work Phone: [facility] 05-05-2024 11:28-0500 Body temperature 98.01 [degF] Summer Workman PA Work Phone: [facility] 05-05-2024 11:28-0500 Body weight 58.97 kg Summer Workman PA Work Phone: [facility] 05-05-2024 11:28-0500 Diastolic blood pressure 70 mm[Hg] Summer Workman PA Work Phone: [facility] 05-05-2024 11:28-0500 Heart rate 67 /min Summer Workman PA Work Phone: [facility] 05-05-2024 11:28-0500 SaO2% (BldA) [Mass fraction] 96 % Summer Workman PA Work Phone: [facility] 05-05-2024 11:28-0500 Systolic blood pressure 120 mm[Hg] Maribel OLIVO Work Phone: [facility] Encounters Encounter Date Encounter Type Care Provider Facility Start: 08-04-2024 End: 08-04-2024 Clinisync Result Encounter Tiffanie Frausto MD Work Phone: [facility] Unsolicited Start: 08-04-2024 End: 08-04-2024 Clinisync Result Encounter Tiffanie Frausto MD Work Phone: [facility] Unsolicited Start: 07-27-2024 End: 07-27-2024 Bamboo flowsheet Tiffanie Frausto MD Work Phone: [facility] Start: 07-27-2024 End: 07-27-2024 Bamboo flowsheet Tiffanie Frausto MD Work Phone: [facility] Start: 07-27-2024 End: 07-27-2024 ambulatory TIFFANIE FRAUSTO Not Available Start: 07-27-2024 End: 07-27-2024 Office outpatient visit 25 minutes Tiffanie Frausto MD Work Phone: [facility] Comment on above: Mixed hearing loss, bilateral (Primary Dx); ETD (Eustachian tube dysfunction), right; OME (otitis media with effusion), right; Perforation of left tympanic membrane; Foreign body of left ear, initial encounter Start: 07-23-2024 End: 07-23-2024 Bamboo flowsheet Rayna Bishop AUD Work Phone: [facility] Start: 07-23-2024 End: 07-23-2024 Bamboo flowsheet Rayna Bishop AUD Work Phone: [facility] Start: 07-23-2024 End: 07-23-2024 Patient encounter procedure Rayna Bishop AUD Work Phone: [facility] Comment on above: Mixed hearing loss, bilateral (Primary Dx); Other specified disorders of Eustachian tube, unspecified ear Start: 07-23-2024 End: 07-23-2024 ambulatory RAYNA BISHOP Not Available Start: 06-16-2024 End: 06-16-2024 Naga Frausto MD Work Phone: [facility] Start: 06-16-2024 End: 06-16-2024 Naga Frausto MD Work Phone: [facility] Start: 06-16-2024 End: 06-16-2024 Patient encounter procedure Tiffanie Frausto MD Work Phone: [facility] Comment on above: Foreign body of left ear, initial encounter (Primary Dx); Multiple perforations of left tympanic membrane Start: 06-16-2024 End: 06-16-2024 ambulatory TIFFANIE FRAUSTO Not Available Start: 06-08-2024 End: 06-08-2024 Naga Frausto MD Work Phone: [facility] Start: 06-08-2024 End: 06-08-2024 Naga Frausto MD Work Phone: [facility] Start: 06-08-2024 End: 06-08-2024 Telephone encounter Tiffanie Frausto MD Work Phone: [facility] Start: 06-08-2024 End: 06-08-2024 Office outpatient visit 25 minutes Tiffanie Frausto MD Work Phone: [facility] Comment on above: OME (otitis media wi th effusion), right (Primary Dx); Perforation of left tympanic membrane; Foreign body of left ear, initial encounter Start: 06-08-2024 End: 06-08-2024 ambulatory TIFFANIE FRAUSTO Not Available Start: 05-14-2024 End: 05-14-2024 Bamerin Frausto MD Work Phone: [facility] [place] Start: 05-14-2024 End: 05-14-2024 Bamboo flowsheet Tiffanie Frausto MD Work Phone: [facility] Start: 05-14-2024 End: 05-14-2024 Office outpatient new 45 minutes Tiffanie Frausto MD Work Phone: [facility] Comment on above: Right acute otitis m edia (Primary Dx); Perforation of left tympanic membrane; Chronic otorrhea of left ear; Bilateral hearing loss, unspecified hearing loss type Start: 05-14-2024 End: 05-14-2024 ambulatory TIFFANIE FRAUSTO Not Available Start: 05-05-2024 End: 05-05-2024 Bamboo flowsheet Bilims Workman PA Work Phone: [facility] Start: 05-05-2024 End: 05-05-2024 Bamboo flowsheet Bilims Workman PA Work Phone: [facility] Start: 05-05-2024 End: 05-05-2024 Office outpatient new 45 minutes LettuceThinner M Workman PA Work Phone: [facility] Comment on above: Non-recurrent acute suppurative otitis media of right ear with spontaneous rupture of tympanic membrane (Primary Dx); Non-recurrent acute suppurative otitis media of left ear without spontaneous rupture of tympanic membrane; Bronchitis Start: 05-05-2024 End: 05-05-2024 ambulatory Orgoo WORKMAN Not Available Start: 11-03-2023 End: 11-06-[address] [facility] Start: 08-14-2023 End: 08-15-2023 ambulatory [facility] Facility:[facility] Start: 10-24-2022 End: 10-26-2022 Subsequent hospital visit by physician [facility] Comment on above: Visit for screening mammogram Start: 10-23-2021 End: 10-25-2021 Subsequent hospital visit by physician [facility] Comment on above: Visit for screening mammogram Start: 08-18-2019 End: 08-18-2019 Subsequent hospital visit by physician [facility] Schedule [facility] Comment on above: Mixed hyperlipidemia Procedures Date Procedure Procedure Detail Performing Clinician Start: 08-04-2024 ALL CBC WITH AUTO DIFF Tiffanie Frausto MD Work Phone: Start: 08-04-2024 ECG 12-LEAD Tiffanie tijerina MD Work Phone: Start: 07-23-2024 AUDITORY FUNCTION TESTS Rayna EDMOND Work Phone: Start: 11-03-2023 Mammography Summer Wor maite PA Work Phone: Start: 10-24-2022 Screening mammograph y bi 2-view breast inc cad Dandy W Vandehey DO Work Phone: Start: 10-23-2021 Screening mammograph y bi 2-view breast inc cad Dandy W Vandehey DO Work Phone: Start: 08-18-2019 Assay of thyroid stimulating hormone tsh Dandy W Vandehey Work Phone: Start: 08-18-2019 Blood count complete auto&auto difrntl wbc Dandy W Vandehey Work Phone: Start: 08-18-2019 Comprehensive metabo lic panel Dandy W Vandehey Work Phone: Start: 08-18-2019 Lipid panel Dandy W V andehey Work Phone: Start: 01-11-2015 Colonoscopy [facility] Room Plan of Treatment Date Care Activity Detail Author Start: 08-13-2027 Lipid panel Lipids [facility] Start: 08-07-2026 Lipid panel Lipids [facility] Start: 01-11-2025 Colon cancer screen colonoscopy Colon cancer [email or web address] [place] Start: 01-11-2025 Screening for malign ant neoplasm of colon [email or web address] Start: 11-02-2024 Screening for malign ant neoplasm of breast Mammogram [facility] Start: 10-24-2024 Screening for malign ant neoplasm of breast Breast cancer screen [employer] Start: 09-07-2024 End: 09-07-2024 Patient encounter procedure 09/07/2024 9:40 AM EDT Office Visit [facility] [address] [place] [address] Tiffanie Frausto MD [address] [place] [address] [facility] Start: 08-20-2024 Medicare Annual Wellness (AWV) Medicare Annual Wellness (AWV) [facility] Start: 07-27-2024 End: 07-27-2024 Patient encounter procedure 07/27/2024 10:20 AM EST Office Visit [facility] [address] [place] [address] Tiffanie Frausto MD [address] [place] [address] [facility] Start: 07-23-2024 End: 07-23-2024 Patient encounter procedure [facility] Comment on above: Arrived Start: 06-16-2024 End: 06-16-2024 Patient encounter procedure [facility] Comment on above: Arrived Start: 06-08-2024 End: 06-08-2024 Patient encounter procedure 06/08/2024 9:40 AM EST Office Visit [facility] [address] [place] [address] Tiffanie Frausto MD [address] [place] [address] [facility] Start: 02-29-2024 Influenza vaccination Influenza Vacc ine (#1) [facility] Start: 10-24-2023 Screening for malign ant neoplasm of breast Breast cancer screen [email or web address] Start: 08-21-2023 Annual Wellness Visi t (AWV) Annual Wellness Visit (AWV) [facility] [employer] Start: 08-20-2023 Depression Monitoring Depression Mon siddhartha [facility] [employer] Start: 08-19-2023 End: 08-19-2023 Patient encounter procedure 08/19/2023 Office Visit Family Medicine Dandy Molina, DO [address] [place] [address] [facility] Start: 08-13-2023 Lipid screen Lipid screen [place], [place] Start: 06-29-2023 DTaP/Tdap/Td vaccine (2 - Td or Tdap) DTaP/Tdap/Td vaccine (2 - Td or Tdap) [facility] Start: 06-29-2023 DTaP/Tdap/Td vaccine (2 - Td) DTaP/Tdap/Td vaccine (2 - Td) [place] Start: 08-28-2022 Annual Wellness Visi t (AWV) Annual Wellness Visit (AWV) [facility] Start: 08-27-2022 Depression Monitoring Depression [facility] Start: 08-16-2022 End: 08-16-2022 Patient encounter procedure 08/16/2022 Office Visit Family Medicine Dandy Molina, DO [address] [place] [address] [facility] Start: 07-08-2021 COVID-19 Vaccine (4 - Booster for Moderna series) COVID-19 Vaccine (4 - Booster for Moderna series) [facility] Start: 09-24-2020 [facility] [place] [place] Start: 08-23-2019 End: 08-23-2019 Office Visit 08/23/2019 Office Visit Family Medicine Dandy Molina, DO [address] [place] [id number] [facility] Family [facility] Start: 08-21-2019 Annual Wellness Visi t (AWV) Annual Wellness Visit (AWV) [place] Start: 01-12-2016 Screening for malign ant neoplasm of colon FIT/FOBT: Average risk [facility] Start: 10-04-1996 Screening for malign ant neoplasm of colon [facility] Start: 1991 Screening for malign ant neoplasm of breast Mammogram [facility] Start: 1951 Screening for malign ant neoplasm of colon [facility] [facility] Immunization Date Immunization Notes Care Provider Fa mounajluis 04-23-2023 influenza virus vacc ine, unspecified formulation Summer Workman PA Work Phone: [facility] 08-20-2022 Influenza, FLUAD, (a ge 65 y+), Adjuvanted, 0.5mL [facility] 05-13-2021 COVID-19, Moderna, Primary or Immunocompromised, PF, 100mcg/0.5mL [facility] Work Phone: 04-25-2021 Influenza, High-dose , Quadv, 65 yrs +, IM (Fluzone) [facility] Phone: 09-15-2020 COVID-19, Moderna, Primary or Immunocompromised, PF, 100mcg/0.5mL [facility] 08-18-2020 COVID-19, Moderna, Primary or Immunocompromised, PF, 100mcg/0.5mL [facility] 05-18-2020 influenza, high dose seasonal, preservative-free [facility] Phone: 05-20-2019 Seasonal trivalent influenza vaccine, adjuvanted, preservative free [facility] [place] 08-20-2018 pneumococcal polysaccharide vaccine, 23 valent [facility] [place] 05-29-2018 zoster vaccine recombinant [facility] [place] 04-10-2018 influenza, high dose seasonal, preservative-free [facility] [place] 12-29-2017 zoster vaccine recombinant [facility] [place] 08-19-2017 pneumococcal conjuga te vaccine, 13 valent [facility] [place] 07-11-2017 influenza, high dose seasonal, preservative-free [facility] [place] 08-05-2016 influenza, injectabl e, quadrivalent, preservative free [facility] Schedule [facility] 04-06-2014 influenza virus vacc ine, unspecified formulation [facility] 06-29-2013 tetanus toxoid, redu bianka diphtheria toxoid, and acellular pertussis vaccine, adsorbed [facility] Schedule [facility] 04-12-2013 influenza virus vacc ine, unspecified formulation [facility] Schedule [facility] 12-04-2012 zoster vaccine, live [facility] Schedule [facility] [place] Payers Date Payer Category Payer Medicaid [employer] MEDICARE A DVANTAGE [id number] 2021 Medicare [id number] 2017 Medicare AETNA MEDICARE A ETNA MEDICARE-ADVANTAGE PPO xxxxxxxx 2017-Present [address] [place] [address] Medicare xxxxxxxx [id number] 1950 Unknown [id number] 1950 Unknown [id number] 1950 Unknown [id number] 1950 Unknown [id number] 1950 Unknown [id number] 1950 Unknown [id number] 1950 Unknown [id number] 1950 Unknown [id number] Social History Date Type Detail Facility Start: 08-20-2018 End: 05-14-2024 Tobacco smoking status NHIS Never smoker [place] Start: 08-20-2018 End: 07-27-2024 Alcohol intake Current drinker of alcohol (finding) [place] Start: 05-21-2013 Alcohol Comment 4 beers daily [place] Start: 1950 Sex Assigned At Not on file [place] Start: 05-09-2013 End: 05-14-2024 Tobacco use and exposure Smokeless tobacco non-user [facility] Phone: Start: 08-27-2021 End: 08-20-2022 History SDOH Alcohol Frequency 5 [facility] Phone: Start: 08-27-2021 History SDOH Alcohol Std Drinks 3 [facility] Phone: Start: 08-27-2021 History SDOH Physica l Activity DPW 6 [facility] Phone: Start: 08-15-2021 End: 08-20-2022 History SDOH Food Worry 1 [facility] Phone: Start: 08-23-2019 End: 08-20-2022 History SDOH Transport Med 2 [facility] Phone: Start: 08-20-2022 History SDOH Alcohol Frequency 4 [email or web address] Phone: Start: 08-20-2022 History SDOH Physica l Activity DPW 7 [facility] [employer] Work Phone: Tobacco smoking stat us [facility] Tobacco smoking consumption unknown [facility] Start: 05-14-2024 End: 07-27-2024 Gender identity Not on file [facility] Start: 05-14-2024 End: 07-27-2024 History of Social function [facility] Clinical Notes 05-05-2024 to 07-27-2024 Tiffanie Frausto MD - 07/27/2024 10:20 AM Isabela Bishop, AUD - 07/23/2024 9:00 AM Lesley Frausto MD - 06/16/2024 10:40 AM ESTTelephone Encounter - Mckenzie Courtney - 06/08/2024 1:59 PM EST Note Date & Type Note Facility 07-27-2024 History of Presen t illness Narrative Subjective Patient ID: Chiqui Weinberg is a 73 y.o. female who presents for Ear Problem (Follow up Audio 07/23/24) Audio shows yuan severe mixed HL with symmetric nerve lines between 30 and 50db. No family history on file. Active Ambulatory Problems Diagnosis Date Noted Current moderate episode of major depressive disorder without prior episode (HCC) ([facility]) 08/15/2021 Mixed hyperlipidemia ([facility]) 08/05/2016 Paresthesia of left upper limb 05/21/2013 Resolved Ambulatory Problems Diagnosis Date Noted No Resolved Ambulatory Problems Past Medical History: Diagnosis Date HL (hearing loss) History reviewed. No pertinent surgical history. No Known Allergies Current Outpatient Medications on File Prior to Visit Medication Sig Dispense Refill escitalopram (Lexapro) 10 MG tablet Take 10 mg by mouth Daily fluticasone (Flonase) 50 MCG/ACT nasal spray Administer 2 sprays into each nostril Daily Shake gently. Before first use, prime pump. After use, clean tip and replace cap. 48 g 3 Multiple Vitamins-Minerals (Multivitamin Adults 50+) tablet Take 1 tablet by mouth Daily No current facility-administered medications on file prior to visit. Objective Last Recorded Vitals Vitals: 07/27/24 1033 BP: 99/68 Pulse: 79 ENT Physical Exam Ear Ear comments: RT ME effusion. Tymp flat. LT - Dry inferior TM perf with large crust Assessment/Plan Diagnoses and all orders for this visit: Mixed hearing loss, bilateral ETD (Eustachian tube dysfunction), right OME (otitis media with effusion), right Perforation of left tympanic membrane Foreign body of left ear, initial encounter I will plan a RT t-tube for persistent OME and will debride the left ear at that time. Recommend yuan hearing aids given the location of pt's nerve line. Hold off on left tympanoplasty to see how pt does with RAMÍREZ documented in this encounter [facility] 07-23-2024 History of Presen t illness Narrative History: Patient was referred for an audiological evaluation by Dr. Frausto. Debris was removed from her ear on 06-16-2024. Otoscopic Exam: Revealed ear canals were clear from excessive cerumen, bilaterally. Pure Tone Audiometry Audio indicated a moderate to profound mixed hearing loss, bilaterally. Speech Audiometry Right SRT = 55 dB and word discrimination score at 85 dBHL = 96% Left SRT = 55 dB and word discrimination score at 85 dBHL = 100% Tympanometry CNT- Equipment malfunction Impressions: Dr. Frausto 07-27-2024 documented in this encounter [facility] 06-16-2024 History of Presen t illness Narrative Images from the original note were not included. Subjective Patient ID: Chiqui Weinberg is a 73 y.o. female who presents for Ear Problem (1 week follow up ears) F/U to debride crust and ME after using drops to soften No family history on file. Active Ambulatory Problems Diagnosis Date Noted Current moderate episode of major depressive disorder without prior episode (HCC) ([facility]) 08/15/2021 Mixed hyperlipidemia ([facility]) 08/05/2016 Paresthesia of left upper limb 05/21/2013 Resolved Ambulatory Problems Diagnosis Date Noted No Resolved Ambulatory Problems Past Medical History: Diagnosis Date HL (hearing loss) History reviewed. No pertinent surgical history. No Known Allergies Current Outpatient Medications on File Prior to Visit Medication Sig Dispense Refill escitalopram (Lexapro) 10 MG tablet Take 10 mg by mouth Daily fluticasone (Flonase) 50 MCG/ACT nasal spray Administer 2 sprays into each nostril Daily Shake gently. Before first use, prime pump. After use, clean tip and replace cap. 48 g 3 Multiple Vitamins-Minerals (Multivitamin Adults 50+) tablet Take 1 tablet by mouth Daily [] ofloxacin (Floxin) 0.3 % otic solution Administer 4 drops into the left ear in the morning and 4 drops before bedtime. Do all this for 5 days. 10 mL 0 No current facility-administered medications on file prior to visit. Objective Last Recorded Vitals Vitals: 06/16/24 1034 BP: 125/66 ENT Physical Exam Ear Ear comments: Crust debrided from left TM, ME and EAC. Clean/dry perf sparing post/sup quadrant Patient ID: Chiqui Weinberg is a 73 y.o. female. Procedures Foreign body removed from the left ear canal under micro with a forecep and pick Assessment/Plan Diagnoses and all orders for this visit: Foreign body of left ear, initial encounter Multiple perforations of left tympanic membrane Left TM, ME and EAC successfully debrided. F/U after audio to eval for possible RT tube and check left TM to see if it has healed at all after infection resolved documented in this encounter [facility] 06-08-2024 Telephone encount er Note Called pt/pt verbalized understanding. [facility] 06-08-2024 Miscellaneous Notes Formattin g of this note might be different from the original. Called pt/pt verbalized understanding. 5 days before she comes back Pt was in this am. Pt has a question, Does the ear drops start today morning and night or does it start 5 days before she comes back? documented in this encounter [facility] 06-08-2024 Telephone encount er Note 5 days before she comes back [facility] 06-08-2024 Telephone encount er Note Pt was in this am. Pt has a question, Does the ear drops start today morning and night or does it start 5 days before she comes back? [facility] 06-08-2024 History of Presen t illness Narrative Subjective Patient ID: Chiqui Weinberg is a 73 y.o. female who presents for Ear Problem (3 wk check left TM perf) HL persists. Used drops on left until entire bottle gone, plus a day . No family history on file. Active Ambulatory Problems Diagnosis Date Noted Current moderate episode of major depressive disorder without prior episode (HCC) ([facility]) 08/15/2021 Mixed hyperlipidemia ([facility]) 08/05/2016 Paresthesia of left upper limb 05/21/2013 Resolved Ambulatory Problems Diagnosis Date Noted No Resolved Ambulatory Problems Past Medical History: Diagnosis Date HL (hearing loss) History reviewed. No pertinent surgical history. No Known Allergies Current Outpatient Medications on File Prior to Visit Medication Sig Dispense Refill escitalopram (Lexapro) 10 MG tablet Take 10 mg by mouth Daily fluticasone (Flonase) 50 MCG/ACT nasal spray Administer 2 sprays into each nostril Daily Shake gently. Before first use, prime pump. After use, clean tip and replace cap. 48 g 3 Multiple Vitamins-Minerals (Multivitamin Adults 50+) tablet Take 1 tablet by mouth Daily No current facility-administered medications on file prior to visit. Objective Last Recorded Vitals Vitals: 06/08/24 0940 BP: 110/62 ENT Physical Exam Constitutional Appearance: patient appears well-developed, well-nourished and well-groomed, Communication/Voice: communication appropriate for developmental age; vocal quality normal; Ear Ear comments: RT dull TM. LT - thick hard crust of drop residue in ME and on TM. Unable to debrided due to thickness and pain. Assessment/Plan Diagnoses and all orders for this visit: OME (otitis media with effusion), right Perforation of left tympanic membrane Foreign body of left ear, initial encounter Left otorrhea resolved but has thick hard crust I cannot debride. Start oflox to soften crust and F/U for me to debride. Likely has RT OME. Check audio and plan tube documented in this encounter [facility] 05-14-2024 History of Presen t illness Narrative Subjective Patient ID: Chiqui Weinberg is a 73 y.o. female who presents for Otitis Media Pt reports a one week H/O yuan hearing loss. Had a URI and noted to have a perf. Tx with oflox. Since going to hearing markedly decreased. Pt believes she had a remote h/o TM perf. Review of Systems All other systems reviewed and are negative. No family history on file. Active Ambulatory Problems Diagnosis Date Noted Current moderate episode of major depressive disorder without prior episode (HCC) ([facility]) 08/15/2021 Mixed hyperlipidemia ([facility]) 08/05/2016 Paresthesia of left upper limb 05/21/2013 Resolved Ambulatory Problems Diagnosis Date Noted No Resolved Ambulatory Problems Past Medical History: Diagnosis Date HL (hearing loss) History reviewed. No pertinent surgical history. No Known Allergies Current Outpatient Medications on File Prior to Visit Medication Sig Dispense Refill escitalopram (Lexapro) 10 MG tablet Take 10 mg by mouth Daily Multiple Vitamins-Minerals (Multivitamin Adults 50+) tablet Take 1 tablet by mouth Daily [DISCONTINUED] amoxicillin-clavulanate (Augmentin) 875-125 MG tablet Take 1 tablet (875 mg) by mouth in the morning and 1 tablet (875 mg) before bedtime. Do all this for 7 days. 14 tablet 0 [DISCONTINUED] ofloxacin (Floxin) 0.3 % otic solution Administer 10 drops into the right ear Daily for 7 days 5 mL 0 No current facility-administered medications on file prior to visit. Objective Last Recorded Vitals Vitals: 05/14/24 1358 BP: 111/77 ENT Physical Exam Constitutional Appearance: patient appears well-developed, well-nourished and well-groomed, Head and Face Appearance: head appears normal and face appears atraumatic; Ear Ear Canals: right ear canal normal; left ear canal normal; Ear comments: RT - crust suctioned from TM. Effusion present. LT - 30% inf perf with otorrhea Nose External Nose: nares patent bilaterally; external nose normal; Internal Nose: septum normal; Oral Cavity/Oropharynx Tongue: normal; Oral mucosa: normal; Hard palate: normal; Soft palate: normal; Tonsils: normal; Neck Neck: neck normal; neck palpation normal; Thyroid: thyroid normal; Respiratory Inspection: breathing unlabored; normal breathing rate; Auscultation: breath sounds are clear; Cardiovascular Inspection: extremities are warm and well perfused; no peripheral edema present; Auscultation: regular rate and rhythm; Assessment/Plan Diagnoses and all orders for this visit: Right acute otitis media Perforation of left tympanic membrane Chronic otorrhea of left ear Bilateral hearing loss, unspecified hearing loss type Hx suggestive of AOM. Unclear if perf old or recent, but infected. Tx with ciprodex, augmentin, predisone and flonase. Check audio. May need tube and tympanoplsty documented in this encounter [facility] 05-05-2024 History of Presen t illness Narrative HPI: Historian of HPI: patient Chiqui Weinberg is a 73 y.o. female who presents today to the Urgent Care with the following complaints and denials which have been present for 1-1.5 weeks. C/O Denies Symptom Comments [] [x] Runny Nose [] [x] Difficulty Swallowing [] [x] Sore Throat [x] [] Cough [x] [] Ear Pain [] [x] Fever [x] [] Chills [] [x] Nasal Congestion [] [x] Myalgia [] [x] Sinus Pain [] [x] Sinus Pressure Additional Comments: pt has taken cough/cold meds OTC medication without relief Pt c/o feeling popping in left ear and now having difficulty hearing but reports she has chronic hearing loss. She report she thinks she popped her right eardrum many many years ago. She reports her right ear was hurting but isnt anymore, denies hearing loss other than feeling muffled bilaterally and again has chronic hearing loss. Denies otorrhea. Pt c/o pain in her abdomen from coughing but denies any bruising, consistent pain, n/v/d. Denies fevers, myalgias, sob, wheezing. ROS: A complete system ROS was performed and negative aside from the pertinent positives noted in the HPI and PE. IH Testing: Physical Exam General Examination: alert, oriented, normal affect, well-appearing, in no acute distress, well developed, well nourished. Head: normocephalic, atraumatic Eyes: sclera non-icteric Ears: auditory canal clear b/l, tympanic membrane erythematous and bulging on left with TM rupture on right, left TM intact but erythematous and with serous effusion Nose: Slight congestion noted Oral Cavity: no lesions, mucosa moist Throat: clear, symmetrical rise of soft palate and uvula, no erythema or exudate Lymph Nodes: no cervical adenopathy Heart: regular rate and rhythm, S1, S2 normal Lungs: clear to auscultation bilaterally. No wheezes, rales, rhonchi. Extremities: no edema, no cyanosis Psych: alert, oriented, cognitive function intact, cooperative with exam. Assessment/Plan 1. Non-recurrent acute suppurative otitis media of right ear with spontaneous rupture of tympanic membrane (Primary) Discussed dx and tx. Will treat with augmentin, common side effects discussed. Advised start mucinex dm, tylenol or motrin otc as needed as directed, push fluids, cool mist humidifier. Advised if symptoms worsen, change, or do not improve she needs immediate re-eval. Patient advised must follow-up with ENT and PCP in 7-10 days for TM re-check. Advised no submersion in water. Ds TM perforation typically heal on their own and take 4-6 weeks to do so but requires follow up. All questions/concerns addressed. Patient voiced understanding and agreement with the plan. - Ambulatory referral to ENT; Future - amoxicillin-clavulanate (Augmentin) 875-125 MG tablet; Take 1 tablet (875 mg) by mouth in the morning and 1 tablet (875 mg) before bedtime. Do all this for 7 days. Dispense: 14 tablet; Refill: 0 - ofloxacin (Floxin) 0.3 % otic solution; Administer 10 drops into the right ear Daily for 7 days Dispense: 5 mL; Refill: 0 2. Non-recurrent acute suppurative otitis media of left ear without spontaneous rupture of tympanic membrane Tx as above. - amoxicillin-clavulanate (Augmentin) 875-125 MG tablet; Take 1 tablet (875 mg) by mouth in the morning and 1 tablet (875 mg) before bedtime. Do all this for 7 days. Dispense: 14 tablet; Refill: 0 3. Bronchitis Tx as above. - amoxicillin-clavulanate (Augmentin) 875-125 MG tablet; Take 1 tablet (875 mg) by mouth in the morning and 1 tablet (875 mg) before bedtime. Do all this for 7 days. Dispense: 14 tablet; Refill: 0 documented in this encounter [facility] Evaluation note Diagnosis Visit for screening mammogram Other screening mammogram documented in this encounter [facility] Phone: evaluation note* Diagnosis Visit for screening mammogram Other screening mammogram documented in this encounter [email or web address] [email or web address] Phone: evaleadkis note* Diagnosis Non-recurrent acute suppurative otitis media of right ear with spontaneous rupture of tympanic membrane- Primary Non-recurrent acute suppurative otitis media of left ear without spontaneous rupture of tympanic membrane Bronchitis Bronchitis, not specified as acute or chronic [facility] Diagnosis Right acute otitis media- Primary Unspecified otitis media Perforation of left tympanic membrane Chronic otorrhea of left ear Bilateral hearing loss, unspecified hearing loss type [facility] Diagnosis OME (otitis media with effusion), right- Primary Perforation of left tympanic membrane Foreign body of left ear, initial encounter [facility] Diagnosis Foreign body of left ear, initial encounter- Primary Multiple perforations of left tympanic membrane [facility] Diagnosis Mixed hearing loss, bilateral- Primary Other specified disorders of Eustachian tube, unspecified ear [facility] Diagnosis Mixed hearing loss, bilateral- Primary ETD (Eustachian tube dysfunction), right OME (otitis media with effusion), right Perforation of left tympanic membrane Foreign body of left ear, initial encounter documented in this encounter [facility] Assessments Diagnosis Mixed hyperlipidemia Advance Directives Documents on File Type Date Recorded Patient Home Visit Field Care Manager Expl anation Advance Directives and Living Will Power of Rn Traveling Latest Code Status on File Code Status Date Activated Date Inactivated Comments Full Code 01/11/2015 7:55 AM 01/11/2015 6:43 PM Documents on File Type Date Recorded Patient Home Visit Field Care Manager Expl anation ACP-Advance Directive ACP-Power of Rn Traveling Latest Code Status on File Code Status Date Activated Date Inactivated Comments Full Code 01/11/2015 7:55 AM 01/11/2015 6:43 PM Healthcare Agents on File Name Relationship Healthcare Agent Relationshi p Communication Jaskaran Weinberg Spouse Primary Decision Maker Latest Code Status on File Code Status Date Activated Date Inactivated Comments Full Code 01/11/2015 7:55 AM 01/11/2015 6:43 PM Healthcare Agents on File Name Relationship Healthcare Agent Chapishi p Communication Jaskaran Weinberg Spouse Primary Decision Maker Reason for Referral Specialty Diagnoses / Procedures Referred By David t Referred To Contact Radiology Diagnoses Visit for screening mammogram Procedures [facility]ENT[facility] DIGITAL SCREEN BILATERAL Jesse Dandy W, DO [address] [place] [address] Referral ID Status Reason Start Date Expiration Date Visits Re quested Visits Authorized [id number] Closed 10/20/2021 10/20/2022 1 1 Referral ID Status Reason Start Date Expiration Date Visits Re quested Visits Authorized [id number] Closed 10/14/2022 10/14/2023 1 1 Summary Purpose Family History No Family History Records FoundNo Family History Records FoundNo Family History Records Found Additional Source Comments Reason for Visit (unrecogniz ed section and content) Specialty Diagnoses / Procedures Referred By David t Referred To Contact Radiology Diagnoses Visit for screening mammogram Procedures [facility] FUENTES DIGITAL SCREEN BILATERAL Jesse Dandy W, DO [address] [place] [address] Referral ID Status Reason Start Date Expiration Date Visits Re quested Visits Authorized [id number] Closed 10/20/2021 10/20/2022 1 1 Referral ID Status Reason Start Date Expiration Date Visits Re quested Visits Authorized [id number] Closed 10/14/2022 10/14/2023 1 1 Reason Comments Otitis Media Reason Comments Ear Problem 3 wk check left TM p erf Reason Comments Ear Problem 1 week follow up ear s Reason Comments Ear Problem Follow up Audio 07/23 Care Teams (unrecognized sec tion and content) Accounting Practice Manager Relationship Specialty Start Date End Date Dandy Molina, DO [address] [place] [address] PCP - General Family Medicine 06/17/13 Accounting Practice Manager Relationship Specialty Start Date End Date Dandy Molina, DO [address] [place] [address] PCP - General Family Medicine 06/17/13 Accounting Practice Manager Relationship Specialty Start Date End Date Maribel Mcgill PA [address] [place] [address] PCP - General Internal Medicine 05/11/24 Accounting Practice Manager Relationship Specialty Start Date End Date Maribel Mcgill PA [address] [place] [address] PCP - General Internal Medicine 05/11/24 Accounting Practice Manager Relationship Specialty Start Date End Date Maribel Mcgill PA [address] [place] [address] PCP - General Internal Medicine 05/11/24 Accounting Practice Manager Relationship Specialty Start Date End Date Maribel Mcgill PA [address] [place] [address] PCP - General Internal Medicine 05/11/24 Accounting Practice Manager Relationship Specialty Start Date End Date Maribel Mcgill PA [address] [place] [address] PCP - General Internal Medicine 05/11/24 Accounting Practice Manager Relationship Specialty Start Date End Date Marcelo PALLAVI Hein [address] [place] [address] PCP - General Internal Medicine 05/11/24 Accounting Practice Manager Relationship Specialty Start Date End Date Maribel Mcgill PA [address] [place] [address] PCP - General Internal Medicine 05/11/24 Accounting Practice Manager Relationship Specialty Start Date End Date Maribel Mcgill PA [address] [place] [address] PCP - General Internal Medicine 05/11/24 Accounting Practice Manager Relationship Specialty Start Date End Date Maribel Mcgill PA [address] [place] [address] PCP - General Internal Medicine 05/11/24 INFORMATION SOURCE (unrecogn ized section and content) DATE CREATED AUTHOR 08/19/2023 [facility] DATE CREATED AUTHOR AUTHOR'S ORGANIZ ATION 11/07/2023 [facility] DATE CREATED AUTHOR AUTHOR'S ORGANIZ ATION 07/28/2024 [facility] FOR RECORDS PERTAINING TO PATIENTS WHO ARE OR HAVE BEEN ENROLLED IN A CHEMICAL DEPENDENCY/SUBSTANCEABUSE PROGRAM, SOME INFORMATION MAY BE OMITTED. This clinical summary was aggregated from multiple sources. Caution should be exercised in using it in the provision of clinical care. This summary normalizes information from multiple sources, and as a consequence, information in this document may materially change the coding, format and clinical context of patient data. In addition, data may be omitted in some cases. CLINICAL DECISIONS SHOULD BE BASED ON THE PRIMARY CLINICAL RECORDS. [facility] [employer] [facility] provides no warranty or guarantee of the accuracy or completeness of information in this document.
[2024-08-12] MEDS: LACTATED RINGER'S SOLUTION 1,000 ML 125 ML IV (08:22)
[2024-08-12] MEDS: CIPROFLOXACIN HCL/DEXAMETH 0.3%/0.1% OTIC SUSP 150 DROP/7.5 ML BOTTLE OT (09:55)
[2024-08-12] MEDS: ACETAMINOPHEN 325 MG TABLET 650 MG PO (10:26)
== END 2024-08-12 11:27 | disposition home or self-care (01) ==
PROVIDERS: Visit Provider Otolaryngology
PROC: (CPT 69205; principal; 2024-08-12 09:00)
DX: H69.91 Unspecified Eustachian tube disorder, right ear (principal); H90.6 Mixed conductive and sensorineural hearing loss, bilateral; H72.92 Unspecified perforation of tympanic membrane, left ear; H73.893 Other specified disorders of tympanic membrane, bilateral; T16.2XXA Foreign body in left ear, initial encounter; H65.91 Unspecified nonsuppurative otitis media, right ear; E78.5 Hyperlipidemia, unspecified
CPT/HCPCS: 69205; 69436; 36415; J1100; J2250; J2405; J2704; J3010